=== PATIENT | female | born 2000 | race Two or more races ===

== ENCOUNTER 2022-12-08 10:49 | Emergency (ER) | payer BC, OTHER, SELFPAY ==
[2022-12-08 10:50] VITALS: BP 138/102; PULSE 89; RESP 16; TEMP 36.3; O2SAT 99; BMI 39.0
--- NOTE | 2022-12-08 11:05 | EDS_ITS ---
HPI <REYNOLD Espana - Last Filed: 12/08/22 12:01> History of Present Illness Chief Complaint: Abd Pain Narrative Narrative: 22-year-old female woke up with epigastric pain and nausea about an hour ago. She states it feels like symptoms she had [address] scan showed a hiatal hernia. She does get acid reflux and takes Tums and omeprazole as needed. Last night she was at a wedding and had a few drinks. She states she normally does not drink alcohol. She denies fever, chills, vomiting, or bladder or bowel changes. No abdominal surgical history. No recent pain with eating. PFSH <REYNOLD Espana Last Filed: 12/08/22 12:01> [facility] Medical History no medical history Home Medications omeprazole 40 mg capsule,delayed release 40 mg PO DAILY #30 caps 12/08/22 [Rx Last Taken Unknown] Allergy/AdvReac Type Severity Reaction Status Date / Time No Known Allergies Allergy Verified 12/08/22 10:49 Family History no significant family his Surgical History no surgical history Social History Smoking Status: Never smoker ROS <REYNOLD Espana - Last Filed: 12/08/22 12:01> ROS ED ROS Narrative Constitutional: Negative for fever, chills, malaise. CVS: Negative for chest pain. Respiratory: Negative for shortness of breath. GI: Positive for abdominal pain, nausea. Negative for vomiting, diarrhea, co nstipation, melena, hematochezia. : Negative for dysuria, hematuria or frequency. EXAM <REYNOLD Espana Last Filed: 12/08/22 12:01> Physical Exam Narrative Exam Narrative: CONST: Patient sitting in no acute distress. EYES: Normal inspection. NECK: Normal inspection. RESP: No respiratory distress, CTAB. CVS: Regular rate and rhythm, no murmur, no gallop. ABD: Soft with slight midline epigastric tenderness, no RUQ TTP, no guarding or rebound, nondistended, no hepatosplenomegaly. SKIN: Color normal, no rash, warm, dry, intact. EXTREMITIES: Normal appearance, no pedal edema. NEURO: Oriented x4. PSYCH: Normal affect. Const Vital Signs: 12/08/22 10:50 12/08/22 13:54 Temperature 97.4 F L Temperature Source Temporal Pulse Rate 89 61 Respiratory Rate 16 15 Blood Pressure 138/102 H 123/73 H Blood Pressure Mean 114 Pulse Ox 99 100 Oxygen Delivery Method Room Air <Roberto Rangel MD - Last Filed: 12/08/22 14:33> Physical Exam Const Vital Signs: 12/08/22 10:50 12/08/22 13:54 Temperature 97.4 F L Temperature Source Temporal Pulse Rate 89 61 Respiratory Rate 16 15 Blood Pressure 138/102 H 123/73 H Blood Pressure Mean 114 Pulse Ox 99 100 Oxygen Delivery Method Room Air MDM <REYNOLD Espana - Last Filed: 12/08/22 12:01> [facility] MDM Narrative Medical decision making narrative: History gathered from: Mom and patient Patient was evaluated for nausea and epigastric pain. She has history of hiatal hernia/GERD and did have alcohol last night. She appears well and nontoxic. Vital signs stable. Exam is notable for slight midline epigastric tenderness with no peritoneal signs. She has no RUQ tenderness so I do not suspect gallbladder etiology. Upper abdominal labs were ordered and she was treated with Pepcid and Zofran. CBC, CMP, lipase all unremarkable. test negative. She is feeling improved after Zofran and Pepcid and I discussed with her the most likely cause of her symptoms is GERD/gastritis. I prescribed omeprazole and discussed dietary changes for home. She will follow-up with her PCP and was discharged in stable condition. Lab Data Attestation: I reviewed the patient's lab results. Labs: Laboratory Results - last 24 hr 12/08/22 11:30 WBC 10.2 RBC 4.46 Hgb 13.1 Hct 38.6 MCV 86.5 MCH 29.4 MCHC 33.9 RDW Std Deviation 45.2 H RDW Coeff of Vero 14.1 Plt Count 245 MPV 10.9 Immature Gran % (Auto) 0.300 Neut % (Auto) 67.1 Lymph % (Auto) 25.1 [place] % (Auto) 5.6 Eos % (Auto) 1.7 Baso % (Auto) 0.2 Absolute Neuts (auto) 6.9 Absolute Lymphs (auto) 2.57 Nucleated RBC % 0 Sodium 141 Potassium 3.8 Chloride 109 H Carbon Dioxide 25.0 Anion Gap 7 BUN 10 Creatinine 0.75 Estim Creat Clear Calc 129.28 Est GFR (MDRD) Af Amer 122 Est GFR (MDRD) Non-Af 101 BUN/Creatinine Ratio 13.4 Glucose 93 Calcium 8.5 Total Bilirubin 0.30 AST 14 L ALT 22 Alkaline Phosphatase 43 L Total Protein 6.9 Albumin 3.0 L Globulin 3.9 Albumin/Globulin Ratio 0.8 L Lipase 45 Serum , Qual NEGATIVE <Roberto Rangel MD - Last Filed: 12/08/22 14:33> MDM MDM Narrative Medical decision making narrative: History gathered from: Mom and patient Patient was evaluated for nausea and epigastric pain. She has history of hiatal hernia/GERD and did have alcohol last night. She appears well and nontoxic. Vital signs stable. Exam is notable for slight midline epigastric tenderness with no peritoneal signs. She has no RUQ tenderness so I do not suspect gallbladder etiology. Upper abdominal labs were ordered and she was treated with Pepcid and Zofran. CBC, CMP, lipase all unremarkable. test negative. She is feeling improved after Zofran and Pepcid and I discussed with her the most likely cause of her symptoms is GERD/gastritis. I prescribed omeprazole and discussed dietary changes for home. She will follow-up with her PCP and was discharged in stable condition. Dr. Rangel: I have personally performed a face to face assessment of the patient and have reviewed the JEFFREY Note. I performed a substantive portion of the visit including all aspects of the following. My horvath findings include: History is epigastric pain after drinking alcohol. Exam is afebrile. Vital signs noted. Regular rate and rhythm. Lungs clear to auscultation bilaterally. Abdomen soft with minimal tenderness to palpation in epigastrium. No rebound or guarding. Medical Decision Making: Check labs. IV fluids, famotidine and Zofran. Discharge. Refrain from future alcohol use. Other additions or changes: [None] History & Record Review Discussion w/independent historian: Patient Additional record(s) reviewed:: No prior records Lab Data Labs: Laboratory Results - last 24 hr 12/08/22 11:30 WBC 10.2 RBC 4.46 Hgb 13.1 Hct 38.6 MCV 86.5 MCH 29.4 MCHC 33.9 RDW Std Deviation 45.2 H RDW Coeff of Vero 14.1 Plt Count 245 MPV 10.9 Immature Gran % (Auto) 0.300 Neut % (Auto) 67.1 Lymph % (Auto) 25.1 [place] % (Auto) 5.6 Eos % (Auto) 1.7 Baso % (Auto) 0.2 Absolute Neuts (auto) 6.9 Absolute Lymphs (auto) 2.57 Nucleated RBC % 0 Sodium 141 Potassium 3.8 Chloride 109 H Carbon Dioxide 25.0 Anion Gap 7 BUN 10 Creatinine 0.75 Estim Creat Clear Calc 129.28 Est GFR (MDRD) Af Amer 122 Est GFR (MDRD) Non-Af 101 BUN/Creatinine Ratio 13.4 Glucose 93 Calcium 8.5 Total Bilirubin 0.30 AST 14 L ALT 22 Alkaline Phosphatase 43 L Total Protein 6.9 Albumin 3.0 L Globulin 3.9 Albumin/Globulin Ratio 0.8 L Lipase 45 Serum , Qual NEGATIVE Discharge Plan Triage Chief Complaint: Abd Pain ED Midlevel Provider: Isatu Mcconnell ED Provider: Roberto Rangel Dx/Rx/DC Orders Clinical Impression: Acute epigastric pain Instructions: ED Gastritis (Adult) Prescriptions: New omeprazole 40 mg capsule,delayed release(DR/EC) 40 mg PO DAILY Qty: 30 0RF Primary Care Provider: Care Physician,No Primary Activity Restrictions/Additional Instructions: Take omeprazole once daily for at least 2 weeks. Avoid spicy or tomato-based foods and after eating sit upright for at least 2 to 3 hours to let the food digest. Avoid alcohol. Please follow-up with your PCP return to ER if symptoms significantly worsen. Disposition Disposition: Home, Self Care Discharge Date/Time: 12/08/22 14:15
[2022-12-08] MEDS: Ondansetron 4 MG/2 ML Vial IV (11:33)
[2022-12-08 11:36] LABS: Absolute Lymphocyte Count 2.57 X10^3/uL (0.83-4.51); Absolute Neutrophil Count 6.9 X10^3/uL (2.0-7.7); Basophil# 0.02 X10^3/uL; Basophil% 0.2 % (0-1); Eosinophil# 0.17 X10^3/uL; Eosinophils% 1.7 % (0-5); Hematocrit 38.6 % (37-47); Hemoglobin 13.1 g/dL (12.0-15.0); Lymphocyte # 2.57 X10^3/ul (0.83-4.51); Lymphocyte % 25.1 % (19-41); Mean Corp Hgb Conc 33.9 g/dL (32-36); Mean Corpuscular Hgb 29.4 pg (27.0-32.0); Mean Corpuscular Volume 86.5 fL (81-99); Mean Platelet Vol. 10.9 fl (6.2-12.0); Monocyte# 0.57 X10^3/uL; Monocyte% 5.6 % (0-10); NRBC Flagged by Analyzer 0 % (0-5); Neutrophil # 6.88 X10^3/uL (2.7-7.7); Neutrophil % 67.1 % (47-70); Platelet Count 245 K/mm3 (150-450); RBC Distribution Width CV 14.1 % (11.6-14.6); RBC Distribution Width SD 45.2 fl (35.1-43.9); Red Blood Count 4.46 M/mm3 (4.2-5.4); White Blood Count 10.2 K/mm3 (4.4-11.0)
[2022-12-08 11:39] LABS: Internal QC Validated? YES +Cl - CLEAR BKGD; Pregnancy, Serum, hCG Quali. NEGATIVE Negative
[2022-12-08 11:52] LABS: ALB/GLOB Ratio 0.8 RATIO (0.9-2.4); AST(SGOT) 14 U/L (15-37); Alanine Aminotransfer ALT/SGPT 22 U/L (13-56); Alkaline Phosphatase 43 U/L (45-117); Anion Gap 7 (5-15); BUN 10 mg/dL (7-18); BUN/Creat Ratio 13.4 RATIO (10-20); Calcium,Total 8.5 mg/dL (8.5-10.1); Chloride 109 mmol/L (98-107); Creatinine, Serum 0.75 mg/dL (0.55-1.02); EST Glomerular Filtration Rate 101 mL/min (>60); Est Glom Filt Rate - Afr Amer 122 mL/min (>60); Estimated Creatinine Clearance 129.28 ml/min; Globulin 3.9 g/dL (2.2-4.2); Glucose 93 mg/dL (74-106); Lipase 45 U/L (13-75); Potassium 3.8 mmol/L (3.5-5.1); Protein, Total 6.9 g/dL (6.4-8.2); Sodium Level 141 mmol/L (136-145)
[2022-12-08] MEDS: Famotidine 200 MG/20 ML MDV 20 MG in 0.9% Normal Saline (Pres. free 8 ML 300 MG IV (12:24)
[2022-12-08 13:54] VITALS: BP 123/73; PULSE 61; RESP 15; O2SAT 100
== END 2022-12-08 14:15 | disposition home or self-care (01) ==
LOC: ED 12:02
PROVIDERS: Physician Assistant; Emergency Provider Emergency Medicine; Visit Provider Emergency Medicine
DX: R10.13 Epigastric pain (principal)
CPT/HCPCS: 80053; 83690; 84703; 85025; 99284; J2405; J3490